=== PATIENT | female | born 1995 | race Caucasian/White ===

== ENCOUNTER 2018-10-31 01:11 | Emergency (ER) | payer BC ==
[~2018-10-31] VITALS: Ht 157.5 cm; Wt 56.8 kg
[2018-10-31 01:15] VITALS: TEMP 97.3
[2018-10-31] MEDS ORDERED: BIRTH CONTROL (01:36)
[2018-10-31] MEDS ORDERED: ZOFRAN ODT4 MG PO (03:16)
[2018-10-31 03:25] VITALS: BP 128/91; PULSE 70
== END 2018-10-31 03:25 | disposition home or self-care (01) ==
LOC: COL.ER 01:11
DX: S09.90XA Unspecified injury of head, initial encounter (principal); W18.30XA Fall on same level, unspecified, initial encounter; W22.8XXA Striking against or struck by other objects, initial encounter; Y93.72 Activity, wrestling